=== PATIENT | female | born 1990 | race Caucasian/White ===

== ENCOUNTER 2018-04-19 08:11 | Emergency (ER) | payer SELFPAY ==
[~2018-04-19] VITALS: Ht 167.6 cm; Wt 80.4 kg
--- NOTE | 2018-04-19 08:36 | PHYS DOC ---
Adult General Chief Complaint Chief Complaint: FLANK PAIN [facility] HPI Patient is a 27 year old F who presents with right-sided flank pain that started this morning. She also notes dysuria, urgency and frequency. She states that she has had chills but no fever. She has mild nausea but denies vomiting. She has no other associated symptoms. She has no other exacerbating or relieving factors. Review of Systems Review of Systems Constitutional: Negative except history of present illness Eyes: Denies change in visual acuity, redness, or eye pain [] HENT: Denies nasal congestion or sore throat [] Respiratory: Denies cough or shortness of breath [] Cardiovascular: No additional information not addressed in HPI [] GI: Denies abdominal pain, nausea, vomiting, bloody stools or diarrhea [] : Negative except history of present illness Musculoskeletal: Denies joint pain [] Integument: Denies rash or skin lesions [] Neurologic: Denies headache, focal weakness or sensory changes [] Endocrine: Denies polyuria or polydipsia [] All other systems were reviewed and found to be within normal limits, except as documented in this note. Family History Family History No pertinent family medical history Current Medications Current Medications Medications reviewed Allergies Allergies No known allergies Allergies Coded Allergies Type Severity Reaction Last Updated Verified No Known Drug Allergies 04/19/18 No Physical Exam Physical Exam Constitutional: Well developed, well nourished, no acute distress, non-toxic appearance. [] HENT: Normocephalic, atraumatic Eyes: PERRLA, EOMI, conjunctiva normal, no discharge. [] Neck: Normal range of motion, no tenderness, supple, no stridor. [] Cardiovascular:Heart rate regular rhythm, Lungs & Thorax: Bilateral breath sounds clear to auscultation [] Abdomen: Bowel sounds normal, soft, no masses, no pulsatile masses. [] Mild tenderness noted in the right flank Skin: Warm, dry, no erythema, no rash. Extremities: No tenderness, no cyanosis, no clubbing, ROM intact, no edema. [] Neurologic: Alert and oriented X 3, normal motor function, normal sensory function, no focal deficits noted. [] Psychologic: Affect normal, judgement normal, mood normal. [] Current Patient Data Vital Signs Normal vital signs. Please review nursing documentation for specifics Lab Results Laboratory Tests Test 04/19/18 08:30 Urine Collection Type Unknown Urine Color Yellow Urine Clarity Cloudy Urine pH 5.0 Urine Specific [place] 1.020 Urine Protein 30 mg/dl (NEG-TRACE) Urine Glucose (UA) Neg mg/dL (NEG) Urine Ketones (Stick) Neg mg/dL (NEG) Urine Blood Small (NEG) Urine Nitrite Neg (NEG) Urine Bilirubin Neg (NEG) Urine Urobilinogen Dipstick 0.2 mg/dL (0.2 mg/dL) Urine Leukocyte Esterase Small (NEG) Urine RBC 3-5 /HPF (0-2) Urine WBC 5-10 /HPF (0-4) Urine Squamous Epithelial Cells Mod /LPF Urine Bacteria Mod /HPF (0-FEW) Urine Hyaline Casts Occ /HPF Urine Mucus Slight /LPF EKG EKG [] Radiology/Procedures Radiology/Procedures [] Course & Med Decision Making Course & Med Decision Making Pertinent Labs and Imaging studies reviewed. (See chart for details) Given the patient's symptoms as well as urinalysis findings pyelonephritis was the most likely diagnosis. She denies wavelike pain. She was given strong precautions to return based on symptoms of sepsis and/or kidney stone. She was asked to return to the emergency room if she develops new or worsening symptoms. Dragon Disclaimer Dragon Disclaimer This electronic medical record was generated, in whole or in part, using a voice recognition dictation system. Departure Departure: Impression: Primary Impression: Pyelonephritis Disposition: 01 HOME, SELF-CARE Condition: STABLE Referrals: [facility] (PCP) Patient Instructions: Pyelonephritis, Adult Additional Instructions: Simin bruising to the emergency department for flank pain and problems urinating. No emergency medical condition was found on history or physical exam. She was found to have symptoms consistent with a kidney infection. She was started on an oral antibiotic. She was strongly encouraged to return to the emergency room if she develops new or worsening symptoms. She was advised to follow-up with her primary care doctor in the next 3-5 days for further management. Scripts Cefdinir (CEFDINIR) 300 Mg Capsule 1 CAP PO BID for pyelonephritis for 10 Days, #20 CAP Prov: ALEXANDRO HARMON MD 04/19/18 ALEXANDRO HARMON MD Apr 19, 2018 08:36
[2018-04-19 08:54] LABS: BILIRUBIN,URINE NEG (NEG); CLARITY,URINE CLOUDY; COLOR,URINE YELLOW; GLUCOSE,URINE NEG (NEG); NITRITE,URINE NEG (NEG); UROBILINOGEN,URINE 0.2 mg/dL (0.2 mg/dL)
[2018-04-19 08:55] LABS: BACTERIA,URINE MOD /HPF (0-FEW); HYALINE CASTS, URINE OCC /HPF; SQUAMOUS EPITHELIAL CELL,UR MOD /LPF
[2018-04-19] MEDS ORDERED: CEFD300C PO (09:09)
[2018-04-19] MEDS ORDERED: IV NORMAL SALINE 1,000ML 1,000 ML IV ONE (09:30)
[2018-04-19 09:58] LABS: BASO % 0 % (0-3); EOS % 0 % (0-3); HEMATOCRIT 40.5 % (36.0-47.0); HEMOGLOBIN 13.5 g/dL (12.0-15.5); LYMPH # 0.8 x10^3/uL (1.0-4.8); LYMPH % 13 % (24-48); MEAN CORPUSCULAR HEMOGLOBIN 32 pg (25-35); MEAN CORPUSCULAR HGB CONC 34 g/dL (31-37); MEAN CORPUSCULAR VOLUME 95 fL (79-100); MONO % 1 % (0-9); NEUT % 86 % (31-73); PLATELET COUNT 406 x10^3/uL (140-400); RED BLOOD COUNT 4.27 x10^6/uL (3.50-5.40); WHITE BLOOD COUNT 5.8 x10^3/uL (4.0-11.0)
[2018-04-19 10:06] LABS: CREATININE 0.7 mg/dL (0.6-1.0); GFR 100.4; POTASSIUM 3.9 mmol/L (3.5-5.1)
[2018-04-19 10:58] VITALS: BP 124/87
== END 2018-04-19 10:58 | disposition home or self-care (01) ==
LOC: ER 08:11
DX: N12 Tubulo-interstitial nephritis, not specified as acute or chronic (principal); R51 Headache; R00.0 Tachycardia, unspecified
CPT/HCPCS: 36415; 80048; 81001; 85025; 99283-25; J7030